=== PATIENT | male | born 1960 | race African-American/Black ===

== ENCOUNTER 2016-04-23 09:10 | Inpatient (IN) | payer OTHER ==
--- NOTE | 2016-04-23 09:25 | PDOC ---
History of Present Illness <Rick Monge - Last Filed: 04/23/16 12:34> - General History Source: Patient Exam Limitations: No Limitations - History of Present Illness Initial Comments: 04/23/16 09:34 The patient is a 55 year old male with history of hypertension, diabetes, CHF, atrial fibrillation, not compliant with medications because he believes his dosing is incorrect, who has not taken Lasix and methimazole in 3 weeks, who presents to the ED complaining of 3 weeks of chest tightness, palpations, shortness of breath, and bilateral lower extremity edema. He is noted to be tachycardic to approximately 180 on ED arrival. The patient states he was in seen at an outside ED in December 2015 for rapid atrial fibrillation. He was treated with Diltiazem and admitted to the hospital. He states believes his medication on his discharge were dosed incorrectly, and he has been taking "bits " of them. More recently, he has discontinued his Methimazole secondary to chills and his Lasix secondary to leg swelling. The patient denies any fever or chills. He denies nausea, vomiting, or diarrhea. Doctors are not affiliated with this hospital network. <Marta Hammonds - Last Filed: 04/23/16 12:38> - General Chief Complaint: Chest Pain Stated Complaint: CHEST PAIN, SOB Time Seen by Provider: 04/23/16 09:24 Past History - Psycho/Social/Smoking Cessation Hx Suicidal Ideation: No Smoking History: Current every day smoker Have you smoked in the past 12 months: No Number of Cigarettes Smoked Daily: 3 Information on smoking cessation initiated: No Hx Alcohol Use: No Drug/Substance Use Hx: No <Rick Monge - Last Filed: 04/23/16 12:34> <Marta Hammonds - Last Filed: 04/23/16 12:38> - Past Medical History Allergies/Adverse Reactions: Allergies Allergy/AdvReac Type Severity Reaction Status Date / Time honey Allergy Verified 04/23/16 09:19 Penicillins Allergy Verified 04/23/16 09:19 Home Medications: Ambulatory Orders Aspirin [ASA -] 81 mg PO DAILY 04/23/16 Digoxin [Digitek] 250 mcg PO DAILY 04/23/16 Hydrochlorothiazide [Hctz -] 12.5 mg PO DAILY 04/23/16 Metformin HCl 500 mg PO BID 04/23/16 Methimazole 10 mg PO DAILY 04/23/16 Review of Systems - Review of Systems Able to Perform ROS?: Yes Comments:: 04/23/16 10:08 GENERAL/CONSTITUTIONAL: No fever or chills. No weakness. HEAD, EYES, EARS, NOSE AND THROAT: No change in vision. No ear pain or discharge. No sore throat CARDIOVASCULAR: Shortness of breath, chest tightness, palpitations, b/l LE edema RESPIRATORY: No wheezing or hemoptysis. GASTROINTESTINAL: No nausea, vomiting, diarrhea or constipation. GENITOURINARY: No dysuria, frequency, or change in urination. MUSCULOSKELETAL: No joint or muscle swelling or pain. No neck or back pain. SKIN: No rash NEUROLOGIC: No headache, vertigo, loss of consciousness, or change in strength/ sensation. ENDOCRINE: No increased thirst. No abnormal weight change. HEMATOLOGIC/LYMPHATIC: No anemia, easy bleeding, or history of blood clots. ALLERGIC/IMMUNOLOGIC: No hives or skin allergy. <Marta Hammonds - Last Filed: 04/23/16 12:38> *Physical Exam - Vital Signs Last Vital Signs Temp Pulse Resp BP Pulse Ox 97.7 F 115 H 22 141/87 96 04/23/16 09:10 04/23/16 09:10 04/23/16 09:10 04/23/16 09:10 04/23/16 09:10 <Rick Monge - Last Filed: 04/23/16 12:34> - Vital Signs Last Vital Signs Temp Pulse Resp BP Pulse Ox 97.7 F 115 H 22 141/87 96 04/23/16 09:10 04/23/16 09:10 04/23/16 09:10 04/23/16 09:10 04/23/16 09:10 - Physical Exam Comments: 04/23/16 10:09 GENERAL: Awake, alert, and fully oriented. Very anxious appearing. HEAD: No signs of trauma EYES: PERRLA, EOMI, sclera anicteric, conjunctiva clear ENT: Auricles normal inspection, hearing grossly normal, nares patent, oropharynx clear without exudates. Moist mucosa NECK: +JVD. Normal ROM, supple, no lymphadenopathy, or masses. No palpable thyromegaly. LUNGS: Breath sounds equal, clear to auscultation bilaterally. No wheezes, and no crackles HEART: Tachycardic rate, irregularly irregular rhythm, +gallop. ABDOMEN: Soft, nontender, normoactive bowel sounds. No guarding, no rebound. No masses EXTREMITIES: Bilateral lower extremity edema. Normal range of motion. No clubbing or cyanosis. No cords, erythema, or tenderness NEUROLOGICAL: Cranial nerves II through XII grossly intact. Normal speech, normal gait SKIN: Warm, Dry, normal turgor, no rashes or lesions noted. <Marta Hammonds - Last Filed: 04/23/16 12:38> Heart Score/ECG Review #1 04/23/16 10:11 EKG obtained 9:25. Atrial flutter with variable AV block, vent rate [address] and T wave abnormality. Abnormal EKG. #2 04/23/16 10:37 EKG obtained 10:34. Atiral flutter with variable AV block, vent rate 110. Low voltage QRS. Cannot rule out anterior infarct, age undetermined. Prolonged QT. Abnormal ECG. <Marta Hammonds - Last Filed: 04/23/16 12:38> ED Treatment Course - LABORATORY CBC & Chemistry Diagram: 04/23/16 09:30 04/23/16 09:30 - RADIOLOGY Radiology Studies Ordered: Category Date Time Status CHEST X-RAY PORTABLE* [RAD] Stat Radiology 04/23/16 09:22 Ordered <Rick Monge - Last Filed: 04/23/16 12:34> - LABORATORY CBC & Chemistry Diagram: 04/23/16 09:30 04/23/16 09:30 - RADIOLOGY Radiograph Interpretation: 04/23/16 12:30 Chest x-ray, read and interpreted by Dr. Sutton, demonstrates cardiomegaly but no acute pathology. <Marta Hammonds - Last Filed: 04/23/16 12:38> Medical Decision Making - Critical Care Time Total Critical Care Time (minutes): 0 - Medical Decision Making 04/23/16 10:14 Patient reassessed after receiving medications, HR is irregularly irregular, but gallop has resolved. <Marta Hammonds - Last Filed: 04/23/16 12:38> *DC/Admit/Observation/Transfer - Discharge Dispostion Admit: Yes - Attestations Physician Attestion: 04/23/16 09:24 I, Dr. Rick Monge, attest that this document has been prepared under my direction and personally reviewed by me in its entirety. I further attest, that it accurately reflects all work, treatment, procedures and medical decision -making performed by me. <Rick Monge - Last Filed: 04/23/16 12:34> - Attestations Scribe Attestion: 04/23/16 10:13 Documentation prepared by Marta Hammonds, acting as medical billing service for Rick Monge DO. <Marta Hammonds - Last Filed: 04/23/16 12:38> Diagnosis at time of Disposition: Atrial fibrillation and flutter, Atrial fibrillation with RVR, Non-compliance - Referrals Referrals: Grace Meade [Primary Care Provider] -
[2016-04-23 09:39] LABS: BASOPHIL 0.9 % (0-2.0); EOSINOPHIL 1.3 % (0-4.5); MCH 28.9 pg (25.7-33.7); MCHC 32.7 g/dl (32.0-35.9); MEAN CELL VOLUME 88.5 fl (80-96); NEUTROPHILS 52.6 % (42.8-82.8); PLATELET COUNT 193 K/MM3 (134-434); RDW 15.9 % (11.9-15.9); WHITE BLOOD COUNT 7.1 K/mm3 (4.0-10.0)
[2016-04-23] MEDS ORDERED: LORAZEPAM CARPU-JECT 2 MG/ML DISP.SYRIN ONE (09:39)
[2016-04-23] MEDS ORDERED: dilTIAZem HCL 50 MG/10 ML - 10 ML VIAL ONE (09:40)
[2016-04-23] MEDS ORDERED: dilTIAZem HCL 50 MG/10 ML - 10 ML VIAL IVPUSH ONE (09:44)
[2016-04-23] MEDS ORDERED: LORAZEPAM CARPU-JECT 2 MG/ML DISP.SYRIN IVPUSH ONE (09:44)
[2016-04-23 09:52] LABS: INR 1.63 (0.82-1.09); PROTHROMBIN TIME (PATIENT) 18.1 SEC (9.98-11.88)
[2016-04-23] MEDS ORDERED: DILTIAZEM INJECTION 125 MG in DEXTROSE 5%-WATER - 100 ML IVPB ONE (09:58)
[2016-04-23] MEDS ORDERED: METOPROLOL TARTRATE 5 MG/5 ML VIAL IVPUSH ONE (09:58)
[2016-04-23 10:09] LABS: ALBUMIN 3.1 g/dl (3.4-5.0); ANION GAP 10 (8-16); BILIRUBIN,TOTAL 3.8 mg/dL (0.2-1.0); CALCIUM 8.1 mg/dL (8.5-10.1); CO2 23 mmol/L (21-32); GLUCOSE,RANDOM 113 mg/dL (74-106); SGOT/AST 35 U/L (15-37); SGPT/ALT 32 U/L (12-78); TOT PROT 6.5 g/dl (6.4-8.2)
[2016-04-23 10:12] LABS: ALK PHOS 145 U/L (45-117); TROPONIN I 0.05 ng/ml (0.00-0.05)
[2016-04-23 10:40] LABS: THYROID STIMULATING HORMONE < 0.01 uIU/ml (0.358-3.74)
[2016-04-23 12:43] LABS: DIGOXIN LEVEL 0.1476 ng/ml (0.8-2.0)
--- NOTE | 2016-04-23 12:50 | HP ---
Admitting History and Physical - Admission History of Present Illness: 55 year old man with uncertain medical history definitely has afib (chart says HTN DM CHF Afib) pt states he knows of no medical problems who presents to the ED complaining of chest tightness for the past 3 weeks. Pt states that he was sent to [facility] from cardiology office for fast heart beat. Pt states that he was told that he might have hyperthyroidism and in addition was to be transferred to [facility] for cardiac cath which he declined. He states that after he left the hospital he was prescribed medications for "my heart" and for diabetes but states that he was never told that he had either. He has just seen his PCP 3 weeks prior to that admission and states that his PCP did not notify him that he had any medical problems. He presented to the ED today very anxious and received ativan. His heart rate was in the 180's and on EKG appears to be SVT and was treated with metoprolol 5 IV and cardizem 20 IV and then started on cardizem drip. - Smoking History Smoking history: Current every day smoker Have you smoked in the past 12 months: No Aproximately how many cigarettes per day: 3 - Alcohol/Substance Use Hx Alcohol Use: No Home Medications - Allergies Allergies/Adverse Reactions: Allergies Allergy/AdvReac Type Severity Reaction Status Date / Time honey Allergy Verified 04/23/16 09:19 Penicillins Allergy Verified 04/23/16 09:19 - Home Medications Home Medications: Ambulatory Orders Aspirin [ASA -] 81 mg PO DAILY 04/23/16 Digoxin [Digitek] 250 mcg PO DAILY 04/23/16 Hydrochlorothiazide [Hctz -] 12.5 mg PO DAILY 04/23/16 Metformin HCl 500 mg PO BID 04/23/16 Methimazole 10 mg PO DAILY 04/23/16 Family Disease History - Family Disease History Family History: Unremarkable Review of Systems - Review of Systems Constitutional: denies: No Symptoms, Chills, Diaphoresis, Fever, Lethargy, Loss of Appetite, Malaise, Night Sweats, Unintentional Wgt. Loss, Weakness, Other Eyes: denies: No Symptoms, Blind Spots, Blurred Vision, Double Vision, Eye Pain , Floaters, Photophobia, Recent Change in Vision, Other HENT: denies: No Symptoms, Difficult Swallowing, Ear Discharge, Ear Pain, Epistaxis, Gingival Bleeding, Hearing Loss, Mouth Swelling, Nasal Congestion, Ocular Prosthesis, Throat Pain, Toothache, Ringing in Ears, Other Neck: denies: No Symptoms, Decreased ROM, Lumps, Pain on Movement, Stiffness, Swollen Glands, Tenderness, Other Cardiovascular: reports: Chest Pain, Edema, Shortness of Breath Respiratory: reports: Orthopnea Gastrointestinal: denies: No Symptoms, Abdominal Pain, Bloating, Constipation, Diarrhea, Dysphagia, Indigestion, Melena, Nausea, Rectal Bleeding, Vomiting, Vomiting Blood, Other Genitourinary: denies: No Symptoms, Burning, Discharge, Dysuria, Flank Pain, Frequency, Hematuria, Incontinence, Lesions, Menses, Pain, Testicular Mass, Testicular Pain, Testicular Swelling, Urgency, Vaginal Bleeding, Other Breasts: denies: No Symptoms Reported, See HPI, Breast Implants, Discharge from Nipple, Lumps, Pain, Skin Changes, Other Musculoskeletal: denies: No Symptoms, Back Pain, Crepitus, Decreased ROM, Extremity Pain, Joint Pain, Joint Swelling, Muscle Pain, Muscle Cramps, Muscle Weakness, Other Integumentary: denies: No Symptoms, Blister, Bruising, Change in Color, Eczema, Erythema, Incision, Lesions, Lump, Pallor, Pruritis, Rash, Wound, Other Neurological: denies: No Symptoms, Change in LOC, Change in Speech, Confusion, Dizziness, Headache, Incoordination, Numbness, Parasthesia, Pre-Existing Deficit , Seizure, Syncope, Tremors, Unsteady Gait, Weakness, Other Endocrine: reports: Excessive Sweating Hematology/Lymphatic: denies: No Symptoms, Easily Bruised, Excessive Bleeding, Swollen Glands, Other Psychiatric: denies: No Symptoms, Altered Sleep Pattern, Anxiety, Depression, Hallucinations, Panic, Paranoia, Suicidal, Other Physical Examination Vital Signs: Vital Signs Temperature 97.7 F 04/23/16 09:10 Pulse Rate 130 H 04/23/16 12:05 Respiratory Rate 20 04/23/16 12:05 Blood Pressure 128/74 04/23/16 12:05 O2 Sat by Pulse Oximetry (%) 100 04/23/16 12:05 Constitutional: Yes: Well Nourished, No Distress, Calm Eyes: Yes: WNL, Conjunctiva Clear, EOM Intact HENT: Yes: WNL, Atraumatic, Normocephalic Neck: Yes: WNL, Supple, Trachea Midline Cardiovascular: Yes: Tachycardia. No: Regular Rate and Rhythm Respiratory: Yes: WNL, Regular, CTA Bilaterally Gastrointestinal: Yes: WNL, Normal Bowel Sounds Musculoskeletal: Yes: WNL Extremities: Yes: WNL Edema: Yes Edema: LLE: 3+, RLE: 3+ Integumentary: Yes: WNL Neurological: Yes: WNL, Alert, Oriented ...Motor Strength: WNL Psychiatric: Yes: WNL Labs: CBC, BMP 04/23/16 09:30 04/23/16 09:30 Assessment/Plan 55 year old man with uncertain medical history definitely has afib (chart says HTN DM CHF Afib) pt states he knows of no medical problems admitted for SVT SVT -heart rate was in the 180's and on EKG appears to be SVT and was treated with metoprolol 5 IV and cardizem 20 IV and then started on cardizem drip -heart rate now in the 130's -will cont cardizem drip at this time and await input from cardiology attending -will hold off on anticoagulation other than ASA at this time as since there is ambiguity as to full medical history so accurate CHADS score is unattainable at this time CHF -pt has orthopnea and 3 plus pitting edema so has CHF based on clinical diagnosis -retrieve echo done 3 weeks ago from [facility] -pt had brief hypotensive episode when cardizem drip was first started so will trend BP and start diuresis and JACK-I if BP remains stable DM -unknown if pt is truly diabetic -follow up HB A1C Visit type - Emergency Visit Emergency Visit: Yes Care time: The patient presented to the Emergency Department on the above date and was hospitalized for further evaluation of their emergent condition. - New Patient This patient is new to me today: Yes Date on this admission: 04/23/16 - Critical Care Critical Care patient: No
[2016-04-23 15:01] VITALS: BMI 34.0
[2016-04-23] MEDS ORDERED: FUROSEMIDE 40 MG/4 ML INJECTABLE VIAL IVPUSH STA (15:45)
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
[2016-04-23] MEDS ORDERED: METOPROLOL TARTRATE 25 MG TABLET (FP) ONE (16:45)
[2016-04-23] MEDS: RIVAROXABAN 20 MG TABLET PO SCH (16:46)
[2016-04-23] MEDS: NICOTINE 14 MG/24 HOURS TOPICAL PATCH TD SCH (16:47)
[2016-04-23] MEDS: METOPROLOL TARTRATE 25 MG TABLET (FP) PO SCH ×3 (16:47→21:28)
[2016-04-23] MEDS ORDERED: dilTIAZem HCL 30 MG TABLET (FP) PO SCH (18:00)
--- NOTE | 2016-04-23 18:11 | EKG ---
Test Reason : Blood Pressure : / mmHG Vent. Rate : 110 BPM Atrial Rate : 277 BPM P-R Int : 000 ms QRS Dur : 072 ms QT Int : 458 ms P-R-T Axes : 000 036 057 degrees QTc Int : 619 ms ATRIAL FLUTTER WITH VARIABLE A-V BLOCK LOW VOLTAGE QRS CANNOT RULE OUT ANTERIOR INFARCT , AGE UNDETERMINED PROLONGED QT ABNORMAL ECG WHEN COMPARED WITH ECG OF 23-APR-2016 09:25, ST NO LONGER DEPRESSED IN INFERIOR LEADS NON-SPECIFIC CHANGE IN ST SEGMENT IN LATERAL LEADS NONSPECIFIC T WAVE ABNORMALITY NOW EVIDENT IN ANTERIOR LEADS Confirmed by ANDI BLANCAS MD ([id number]) on 04/23/2016 6:11:10 PM Referred By: Confirmed By:ANDI BLANCAS MD
--- NOTE | 2016-04-23 18:12 | EKG ---
Test Reason : Blood Pressure : / mmHG Vent. Rate : 158 BPM Atrial Rate : 293 BPM P-R Int : 000 ms QRS Dur : 070 ms QT Int : 256 ms P-R-T Axes : 264 004 002 degrees QTc Int : 415 ms ATRIAL FLUTTER WITH VARIABLE A-V BLOCK NONSPECIFIC ST AND T WAVE ABNORMALITY ABNORMAL ECG NO PREVIOUS ECGS AVAILABLE Confirmed by ANDI BLANCAS MD ([id number]) on 04/23/2016 6:12:10 PM Referred By: Confirmed By:ANDI BLANCAS MD
[2016-04-23] MEDS: METOCLOPRAMIDE HCL INJECTION 10 MG/2 ML VIAL IVPB PRN (23:55)
[2016-04-24] MEDS: FUROSEMIDE 40 MG/4 ML INJECTABLE VIAL IVPUSH SCH ×2 (06:28→14:19)
[2016-04-24 07:44] LABS: ALBUMIN 3.1 g/dl (3.4-5.0); CALCIUM 8.3 mg/dL (8.5-10.1); MAGNESIUM 1.9 mg/dL (1.8-2.4); PHOSPHOROUS 5.5 mg/dL (2.5-4.9)
[2016-04-24 07:46] LABS: BILIRUBIN,TOTAL 3.2 mg/dL (0.2-1.0); CREATININE 1.3 mg/dL (0.7-1.3)
[2016-04-24] MEDS: METOPROLOL TARTRATE 25 MG TABLET (FP) PO SCH (09:34)
[2016-04-24] MEDS: ASPIRIN 81 MG CHEWABLE TABLETS PO SCH (09:34)
[2016-04-24] MEDS: NICOTINE 14 MG/24 HOURS TOPICAL PATCH TD SCH (09:35)
[2016-04-24] MEDS: RIVAROXABAN 20 MG TABLET PO SCH (09:35)
[2016-04-24] MEDS: METHIMAZOLE 10 MG TABLET (FP) PO SCH (09:35)
[2016-04-24 09:41] LABS: BASOPHIL 1.1 % (0-2.0); EOSINOPHIL 0.2 % (0-4.5); MCH 28.7 pg (25.7-33.7); MCHC 32.4 g/dl (32.0-35.9); MEAN CELL VOLUME 88.7 fl (80-96); MEAN PLT VOLUME 9.8 fl (7.5-11.1); NEUTROPHILS 60.3 % (42.8-82.8); PLATELET COUNT 189 K/MM3 (134-434); RDW 15.8 % (11.9-15.9); WHITE BLOOD COUNT 9.8 K/mm3 (4.0-10.0)
[2016-04-24] MEDS: INSULIN SLIDING SCALE (NOVOLOG) 1 VIAL SQ SCH ×3 (11:52→21:04)
--- NOTE | 2016-04-24 11:52 | EKG ---
Test Reason : Blood Pressure : / mmHG Vent. Rate : 132 BPM Atrial Rate : 264 BPM P-R Int : 000 ms QRS Dur : 086 ms QT Int : 280 ms P-R-T Axes : 078 025 -78 degrees QTc Int : 414 ms ATRIAL FLUTTER WITH VARIABLE A-V BLOCK WITH PREMATURE VENTRICULAR OR ABERRANTLY CONDUCTED COMPLEXES NONSPECIFIC T WAVE ABNORMALITY ABNORMAL ECG WHEN COMPARED WITH ECG OF 23-APR-2016 10:34, NONSPECIFIC T WAVE ABNORMALITY NO LONGER EVIDENT IN ANTERIOR LEADS Confirmed by MIN MIRANDA MD ([id number]) on 04/24/2016 11:52:26 AM Referred By: Mathieu FUENTES Confirmed By:MIN MIRANDA MD
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
--- NOTE | 2016-04-24 14:37 | PN ---
Physical Exam: SUBJECTIVE: Patient seen and examined at bedside. Denies chest pain. Occasionally feels palpitations. SOB with minimal exertion, orthopnea. Gained 20 pounds over past month, has b/l LE edema. OBJECTIVE: Vital Signs Period Temp Pulse Resp BP Sys/Schuster Pulse Ox Last 24 Hr 97.2 F-98.5 F 88-137 18-20 96-134/55-77 98-99 GENERAL: The patient is awake, alert, and fully oriented, mildy dyspneic with speaking. HEAD: Normal with no signs of trauma. EYES: PERRL, extraocular movements intact, sclera anicteric, conjunctiva clear. No ptosis. LUNGS: Breath sounds equal, clear to auscultation bilaterally, no wheezes, no crackles, no accessory muscle use. HEART: Irregular, rapid, S1, S2 without murmur, rub or gallop. ABDOMEN: Soft, nontender, nondistended, normoactive bowel sounds, no guarding, no rebound EXTREMITIES: 4+ tense edema NEUROLOGICAL: Cranial nerves II through XII grossly intact. Normal speech, steady gait Laboratory Results - last 24 hr 04/23/16 04/23/16 04/24/16 13:00 16:53 05:35 WBC RBC Hgb Hct MCV MCHC RDW Plt Count MPV Neutrophils % Lymphocytes % Monocytes % Eosinophils % Basophils % Sodium 139 Potassium 4.8 Chloride 105 Carbon Dioxide 22 Anion Gap 12 BUN 20 H D Creatinine 1.3 D Creat Clearance w eGFR 57.10 POC Glucometer 127 Random Glucose 118 H Calcium 8.3 L Phosphorus 5.5 H Magnesium 2.0 1.9 Total Bilirubin 3.2 H AST 49 H D ALT 39 D Alkaline Phosphatase 136 H Total Protein 6.0 L Albumin 3.1 L 04/24/16 04/24/16 06:00 11:46 WBC 9.8 D RBC 4.52 Hgb 13.0 Hct 40.1 MCV 88.7 MCHC 32.4 RDW 15.8 Plt Count 189 MPV 9.8 Neutrophils % 60.3 Lymphocytes % 28.2 Monocytes % 10.2 Eosinophils % 0.2 D Basophils % 1.1 Sodium Potassium Chloride Carbon Dioxide Anion Gap BUN Creatinine Creat Clearance w eGFR POC Glucometer 107 Random Glucose Calcium Phosphorus Magnesium Total Bilirubin AST ALT Alkaline Phosphatase Total Protein Albumin Active Medications Generic Name Dose Route Start Last Admin Trade Name Freq PRN Reason Stop Dose Admin Aspirin 81 mg 04/24/16 10:00 04/24/16 09:34 Asa - PO 81 mg DAILY RAFA Administration Furosemide 40 mg 04/24/16 06:00 04/24/16 14:19 Lasix Injection - IVPUSH 40 mg BID@0600,1400 RAFA Administration Insulin Aspart 1 vial 04/24/16 11:00 04/24/16 11:52 Novolog Vial Sliding Scale - SQ Not Given ACHS RAFA Protocol Methimazole 10 mg 04/24/16 10:00 04/24/16 09:35 Tapazole - PO 10 mg DAILY RAFA Administration Metoclopramide HCl 10 mg 04/23/16 23:29 04/23/16 23:55 Reglan Injection - IVPB 10 mg Q6H PRN Administration NAUSEA AND/OR VOMITING Metoprolol Tartrate 25 mg 04/23/16 22:00 04/24/16 09:34 Lopressor - PO 25 mg BID RAFA Administration Nicotine 14 mg 04/23/16 16:45 04/24/16 09:35 Nicoderm Patch - TD 14 mg DAILY RAFA Administration Rivaroxaban 20 mg 04/23/16 16:45 04/24/16 09:35 Xarelto - PO 20 mg DAILY RAFA Administration ASSESSMENT/PLAN: 55 year-old man with a recent PMH of HTN, heart failure, and NIDDM. Admitted with severe systolic heart failure. NOTE: With respect to "home medications" these were medications prescribed for patient during his [facility] stay in December 2015. He did NOT take these medications on a regular basis, if at all. Acute systolic heart failure Afib with RVR --04/24 Echo: LV severely reduced, severe global hypokinesis; RV normal; severe BLAE; moderate to severe MR; severe TR; mild to moderate AI; moderate PI --severe b/l LE edema, SOB on minimal exertion, HR 140s, brief run of SVT --first troponin neg, second pending --switch PO metoprolol to IV lopressor 5mg q6h --continue Lasix IV 40mg BID --Xarelto for anticoagulation --stress MIBI when more stable Hyperthyroidism --TSH low, free T4 high --methimazole daily --metoprolol for tachycardia NIDDM --HgbA1C 6.6 --Novolog sliding scale coverage F/E/N Fluids: PO intake adequate Electrolytes: replete as indicated Nutrition: low sodium diet DVT prophylaxis: on Xarelto Dispo: continues to require inpatient care. Full code. Visit type - Emergency Visit Emergency Visit: Yes ED Registration Date: 04/23/16 Care time: The patient presented to the Emergency Department on the above date and was hospitalized for further evaluation of their emergent condition. - New Patient This patient is new to me today: Yes Date on this admission: 04/24/16 - Critical Care Critical Care patient: No
[2016-04-24] MEDS ORDERED: DILTIAZEM INJECTION 125 MG in DEXTROSE 5%-WATER - 100 ML IVPB SCH (15:45)
[2016-04-24] MEDS ORDERED: METOPROLOL TARTRATE 5 MG/5 ML VIAL IVPUSH ONE (15:45)
[2016-04-24] MEDS: METOPROLOL TARTRATE 5 MG/5 ML VIAL IVPUSH SCH ×2 (21:05→23:46)
[2016-04-25] MEDS ORDERED: METOPROLOL TARTRATE 5 MG/5 ML VIAL IVPUSH ONE (01:30)
--- NOTE | 2016-04-25 01:50 | HOSP ---
Subjective - Review of Symptoms Subjective: Pt c/o episode chest pain about 30 minutes ago, lasting 20 minutes. Pt states he is feeling fine now. No further complaints. Denies palpitations. Nurse reports heart rate 130s-140s. Physical Examination Vital Signs: Vital Signs Temperature 97.7 F 04/24/16 22:00 Pulse Rate 140 H 04/25/16 01:25 Respiratory Rate 20 04/24/16 22:00 Blood Pressure 114/75 04/25/16 01:25 O2 Sat by Pulse Oximetry (%) 98 04/24/16 21:00 Constitutional: Yes: No Distress Cardiovascular: Yes: Tachycardia, S1, S2. No: Murmur Respiratory: Yes: WNL Gastrointestinal: Yes: WNL Edema: LLE: 3+, RLE: 3+ Labs: CBC, BMP 04/24/16 06:00 04/24/16 05:35 ECG: Atrial flutter with 2:1 conduction, no sig change from prior ECG 04/24. No acute ST/T wave changes. Hospitalist Encounter Assessment: Atrial flutter with RVR, 2:1 - metoprolol 5mg given IVP @11p and again at 130a without response - pt refusing any additional medications at this time, stating "it would kill me" - pt urged to take additional medications, risks discussed at length Chest pain - ECG without acute ST changes - cardiac profile now
[2016-04-25 02:55] LABS: TROPONIN I 0.05 ng/ml (0.00-0.05)
[2016-04-25] MEDS: FUROSEMIDE 40 MG/4 ML INJECTABLE VIAL IVPUSH SCH ×2 (06:34→14:16)
[2016-04-25] MEDS: METOPROLOL TARTRATE 5 MG/5 ML VIAL IVPUSH SCH ×3 (06:34→17:36)
[2016-04-25] MEDS: INSULIN SLIDING SCALE (NOVOLOG) 1 VIAL SQ SCH ×2 (06:49→11:30)
[2016-04-25 08:44] LABS: BASOPHIL 0.6 % (0-2.0); EOSINOPHIL 0.8 % (0-4.5); MCH 28.7 pg (25.7-33.7); MCHC 32.5 g/dl (32.0-35.9); MEAN CELL VOLUME 88.3 fl (80-96); MEAN PLT VOLUME 8.7 fl (7.5-11.1); NEUTROPHILS 58.6 % (42.8-82.8); PLATELET COUNT 193 K/MM3 (134-434); RDW 15.4 % (11.9-15.9); WHITE BLOOD COUNT 6.7 K/mm3 (4.0-10.0)
[2016-04-25 09:23] LABS: ALBUMIN 3.2 g/dl (3.4-5.0); CALCIUM 8.8 mg/dL (8.5-10.1); GLUCOSE,RANDOM 136 mg/dL (74-106); MAGNESIUM 1.7 mg/dL (1.8-2.4)
[2016-04-25 09:31] LABS: ALK PHOS 141 U/L (45-117); ANION GAP 11 (8-16); BILIRUBIN,TOTAL 2.9 mg/dL (0.2-1.0); CO2 27 mmol/L (21-32); SGOT/AST 56 U/L (15-37); SGPT/ALT 48 U/L (12-78); TOT PROT 6.5 g/dl (6.4-8.2); TROPONIN I 0.05 ng/ml (0.00-0.05)
[2016-04-25] MEDS: NICOTINE 14 MG/24 HOURS TOPICAL PATCH TD SCH (09:32)
[2016-04-25] MEDS: METHIMAZOLE 10 MG TABLET (FP) PO SCH (09:32)
[2016-04-25] MEDS: RIVAROXABAN 20 MG TABLET PO SCH (09:32)
[2016-04-25] MEDS: ASPIRIN 81 MG CHEWABLE TABLETS PO SCH (09:32)
--- NOTE | 2016-04-25 10:46 | PN ---
Progress Note, Physician Chief Complaint: Pt sitting up at bedside; no chest pain or dyspnea; denies palpitations; c/o legs still being swollen. History of Present Illness: The patient is a 55 year old black male with history of hypertension, diabetes, CHF, atrial fibrillation, not compliant with medications because he believes his dosing is incorrect, who has not taken Lasix and methimazole in 3 weeks, who presents to the ED complaining of 3 weeks of chest tightness, palpitations, shortness of breath, and bilateral lower extremity edema. He is noted to be tachycardic to approximately 180 on ED arrival. The patient states he was in seen at an outside ED in December 2015 (?[facility] [place]) for rapid atrial fibrillation. "John put the pads on me and shocked me twice"; he was then treated with Diltiazem and admitted to the hospital. He states believes his medication on his discharge were dosed incorrectly, and he has been taking "bits " of them. More recently, he has discontinued his Methimazole secondary to chills and his Lasix secondary to leg swelling. The patient denies any fever or chills. He denies nausea, vomiting, or diarrhea. Pt says that, for months, he gets easily short of breath and has central chest tightness if he walks more than a block quickly; the discomfort takes a few minutes to resolve after he stops walking. Doctors are not affiliated with this hospital network. - Current Medication List Current Medications: Active Medications Aspirin (Asa -) 81 mg PO DAILY [facility] Last Admin: 04/25/16 09:32 Dose: 81 mg Furosemide (Lasix Injection -) 40 mg IVPUSH BID@0600,1400 [facility] Last Admin: 04/25/16 06:34 Dose: 40 mg Insulin Aspart (Novolog Vial Sliding Scale -) 1 vial SQ ACHS [facility] PRN Reason: Protocol Last Admin: 04/25/16 06:49 Dose: Not Given Methimazole (Tapazole -) 10 mg PO DAILY [facility] Last Admin: 04/25/16 09:32 Dose: 10 mg Metoclopramide HCl (Reglan Injection -) 10 mg IVPB Q6H PRN PRN Reason: NAUSEA AND/OR VOMITING Last Admin: 04/23/16 23:55 Dose: 10 mg Metoprolol Tartrate (Lopressor Injection -) 5 mg IVPUSH Q6H [facility] Last Admin: 04/25/16 06:34 Dose: 5 mg Nicotine (Nicoderm Patch -) 14 mg TD DAILY [facility] Last Admin: 04/25/16 09:32 Dose: 14 mg Rivaroxaban (Xarelto -) 20 mg PO DAILY [facility] Last Admin: 04/25/16 09:32 Dose: 20 mg - Objective Vital Signs: Vital Signs Temperature 97.7 F 04/25/16 03:18 Pulse Rate 140 H 04/25/16 07:00 Respiratory Rate 22 04/25/16 07:00 Blood Pressure 110/78 04/25/16 07:00 O2 Sat by Pulse Oximetry (%) 98 04/24/16 21:00 Constitutional: Yes: Calm Eyes: Yes: WNL HENT: Yes: WNL Neck: Yes: WNL Cardiovascular: Yes: Tachycardia, Pulse Irregular, S1 (varies in intensity) Respiratory: Yes: Regular Gastrointestinal: Yes: Soft, Abdomen, Obese ...Rectal Exam: Yes: Deferred Genitourinary: No: Anuria Breast(s): Yes: WNL Extremities: Yes: Cool Edema: Yes Edema: LLE: 2+, RLE: 2+ Peripheral Pulses WNL: Yes Integumentary: Yes: WNL Neurological: Yes: Alert, Oriented Psychiatric: Yes: Alert, Oriented Labs: CBC, BMP 04/25/16 08:15 04/25/16 08:15 INR, PTT INR 1.63 (0.82-1.09) H 04/23/16 09:30 Abnormal Lab Results 04/23/16 04/25/16 04/25/16 09:42 08:15 08:15 Monocytes % 11.2 H BUN 20 H Random Glucose 136 H Magnesium 1.7 L Total Bilirubin 2.9 H AST 56 H Alkaline Phosphatase 141 H Albumin 3.2 L HDL Cholesterol 24 L Free T3 5.4 H Problem List - Problems (1) Atrial fibrillation and flutter Assessment/Plan: ECHO: severely reduced LVEF; mild LV Enlargement; severe pulmonary HTN; moderate AR. AF exacerbated by dilated cardiomyopathy, hyperthyroidism. Started PO metoprolol ER (AF; hyperthyroid); will increase to 100 mg daily. On rivaroxaban for anticoagulation; discontinue ASA. 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 Code(s): I48.91 - UNSPECIFIED ATRIAL FIBRILLATION I48.92 - UNSPECIFIED ATRIAL FLUTTER (2) Diabetes Assessment/Plan: HGBA1c 6.6. Family hx DM. The importance of diet change (nutrition consult would be of benefit), exercise , and portion control was discussed. ?Need for medication. Code(s): E11.9 - TYPE 2 DIABETES MELLITUS WITHOUT COMPLICATIONS (3) HTN (hypertension) Assessment/Plan: on metoprolol, lisinopril, furosemide. Code(s): I10 - ESSENTIAL (PRIMARY) HYPERTENSION (4) Hyperthyroidism Assessment/Plan: restarted methimazole. Started beta blockers (AF; hyperthyroid; HTN). Pt has no hx of asthma. F/u with PMD, ?cuff presser. Code(s): E05.90 - THYROTOXICOSIS, UNSP WITHOUT THYROTOXIC CRISIS OR STORM (5) Non-compliance Code(s): Z91.19 - PATIENT'S NONCOMPLIANCE W OTH MEDICAL TREATMENT AND REGIMEN (6) [place] cardiac risk >20% in next 10 years Assessment/Plan: Lipid panel. Diabetic therapy. thyroid control. F/u records; Coronary artery evaluation (stress MIBI or coronary angiogram because of severely reduced LV now noted on ECHO) when stable, if not done by his own group of doctors.Pt says he never had a heart problem, and does not remember having any of these tests. Code(s): Z91.89 - OTH PERSONAL RISK FACTORS, NOT ELSEWHERE CLASSIFIED (7) Acute on chronic systolic (congestive) heart failure Assessment/Plan: Severely reduced LVEF. Start metoprolol ER (Systolic CHF; AF with RVR); increased to 100 mg daily Started lisinopril 2.5 mg daily, and increase as tolerated Plan for starting spironolactone once lisinopril is optimized, and if BUN/Cr and electrolytes allow. On furosemide. F/u daily weights, Is and Os. Replete magnesium (pt's IV site hurts him; will give Mg Oxide PO). Code(s): I50.23 - ACUTE ON CHRONIC SYSTOLIC (CONGESTIVE) HEART FAILURE
[2016-04-25] MEDS ORDERED: METOPROLOL SUCCINATE 50 MG TAB.SR.24H (FP) PO SCH (11:15)
[2016-04-25] MEDS ORDERED: LISINOPRIL 5 MG TABLET (FP) PO ONE (11:15)
--- NOTE | 2016-04-25 13:06 | EKG ---
Test Reason : Blood Pressure : / mmHG Vent. Rate : 138 BPM Atrial Rate : 276 BPM P-R Int : 000 ms QRS Dur : 072 ms QT Int : 334 ms P-R-T Axes : 020 122 -11 degrees QTc Int : 506 ms ATRIAL FLUTTER WITH 2:1 A-V CONDUCTION POOR R WAVE PROGRESSION ABNORMAL ECG WHEN COMPARED WITH ECG OF 24-APR-2016 08:55, PREMATURE VENTRICULAR COMPLEXES ARE NO LONGER SEEN Confirmed by RAJWINDER COOPER, NABIL ([id number]) on 04/25/2016 1:06:33 PM Referred By: Confirmed By:NABIL PURDY MD
[2016-04-25] MEDS ORDERED: MAGNESIUM OXIDE 400 MG TABLET (FP) PO ONE (13:45)
[2016-04-25 15:10] LABS: CHOLESTEROL 91 mg/dL (50-200); LDL CHOLESTEROL (ONLY SJRH) 70 mg/dL (5-100)
--- NOTE | 2016-04-25 16:25 | PN ---
Physical Exam: SUBJECTIVE: Patient seen and examined at bedside. Still SOB with minimal exertion. Leg swelling has not improved. OBJECTIVE: Vital Signs Period Temp Pulse Resp BP Sys/Schuster Pulse Ox Last 24 Hr 97.5 F-98.3 F 94-143 20-22 110-124/70-95 98 GENERAL: The patient is awake, alert, and fully oriented. HEAD: Normal with no signs of trauma. EYES: PERRL, extraocular movements intact, sclera anicteric, conjunctiva clear. No ptosis. LUNGS: Breath sounds equal, clear to auscultation bilaterally, no wheezes, no crackles, no accessory muscle use. HEART: Irregular, rapid, S1, S2 without murmur, rub or gallop. ABDOMEN: Soft, nontender, nondistended, normoactive bowel sounds, no guarding, no rebound EXTREMITIES: 4+ tense edema NEUROLOGICAL: Cranial nerves II through XII grossly intact. Normal speech, steady gait Laboratory Results - last 24 hr 04/24/16 04/24/16 04/24/16 06:00 16:36 20:58 WBC RBC Hgb Hct MCV MCHC RDW Plt Count MPV Neutrophils % Lymphocytes % Monocytes % Eosinophils % Basophils % Sodium Potassium Chloride Carbon Dioxide Anion Gap BUN Creatinine Creat Clearance w eGFR POC Glucometer 149 173 Random Glucose Calcium Magnesium Total Bilirubin AST ALT Alkaline Phosphatase Creatine Kinase Troponin I 0.04 Total Protein Albumin Triglycerides Cholesterol Total LDL Cholesterol HDL Cholesterol 04/25/16 04/25/16 04/25/16 02:00 06:32 08:15 WBC RBC Hgb Hct MCV MCHC RDW Plt Count MPV Neutrophils % Lymphocytes % Monocytes % Eosinophils % Basophils % Sodium 140 Potassium 3.9 Chloride 102 Carbon Dioxide 27 D Anion Gap 11 BUN 20 H Creatinine 1.0 D Creat Clearance w eGFR > 60 POC Glucometer 110 Random Glucose 136 H Calcium 8.8 Magnesium 1.7 L Total Bilirubin 2.9 H AST 56 H ALT 48 D Alkaline Phosphatase 141 H Creatine Kinase 145 138 Troponin I 0.05 0.05 Total Protein 6.5 Albumin 3.2 L Triglycerides 46 Cholesterol 91 Total LDL Cholesterol 70 HDL Cholesterol 24 L 04/25/16 04/25/16 04/25/16 08:15 08:15 11:29 WBC 6.7 D RBC 4.51 Hgb 12.9 Hct 39.8 MCV 88.3 MCHC 32.5 RDW 15.4 Plt Count 193 MPV 8.7 D Neutrophils % 58.6 Lymphocytes % 28.8 Monocytes % 11.2 H Eosinophils % 0.8 D Basophils % 0.6 Sodium Potassium Chloride Carbon Dioxide Anion Gap BUN Creatinine Creat Clearance w eGFR POC Glucometer 159 Random Glucose Calcium Magnesium Total Bilirubin AST ALT Alkaline Phosphatase Creatine Kinase Troponin I Total Protein Albumin Triglycerides Cancelled Cholesterol Cancelled Total LDL Cholesterol Cancelled HDL Cholesterol Cancelled Active Medications Generic Name Dose Route Start Last Admin Trade Name Audieq PRN Reason Stop Dose Admin Furosemide 40 mg 04/24/16 06:00 04/25/16 14:16 Lasix Injection - IVPUSH 40 mg BID@0600,1400 RAFA Administration Lisinopril 2.5 mg 04/26/16 10:00 Prinivil PO DAILY RAFA Methimazole 10 mg 04/24/16 10:00 04/25/16 09:32 Tapazole - PO 10 mg DAILY RAFA Administration Metoclopramide HCl 10 mg 04/23/16 23:29 04/23/16 23:55 Reglan Injection - IVPB 10 mg Q6H PRN Administration NAUSEA AND/OR VOMITING Metoprolol Succinate 50 mg 04/25/16 11:15 04/25/16 11:30 Toprol Xl - PO 50 mg DAILY RAFA Administration Metoprolol Tartrate 5 mg 04/24/16 18:30 04/25/16 12:49 Lopressor Injection - IVPUSH 5 mg Q6H RAFA Administration Nicotine 14 mg 04/23/16 16:45 04/25/16 09:32 Nicoderm Patch - TD 14 mg DAILY RAFA Administration Rivaroxaban 20 mg 04/23/16 16:45 04/25/16 09:32 Xarelto - PO 20 mg DAILY RAFA Administration ASSESSMENT/PLAN: 55 year-old man with a recent PMH of HTN, heart failure, and NIDDM. Admitted with severe systolic heart failure. Acute systolic heart failure Afib with RVR --04/24 Echo: LV severely reduced, severe global hypokinesis; RV normal; severe BLAE; moderate to severe MR; severe TR; mild to moderate AI; moderate PI --continues to be symptomatic: severe b/l LE edema, SOB on minimal exertion, HR 140s --troponin neg x 3 --start Toprol XL 50mg daily, start lisinopril 2.5mg daily --continue Lasix IV 40mg BID; daily weights, strict I&Os --Xarelto for anticoagulation, ASA d/c'd --stress MIBI when more stable Hyperthyroidism --TSH low, free T4 high --methimazole daily --metoprolol for tachycardia NIDDM --HgbA1C 6.6 --Novolog sliding scale coverage F/E/N Fluids: PO intake adequate Electrolytes: replete as indicated Nutrition: low sodium diet DVT prophylaxis: on Xarelto Dispo: continues to require inpatient care. Full code. Visit type - Emergency Visit Emergency Visit: Yes ED Registration Date: 04/23/16 Care time: The patient presented to the Emergency Department on the above date and was hospitalized for further evaluation of their emergent condition. - New Patient This patient is new to me today: No - Critical Care Critical Care patient: No
[2016-04-25] MEDS ORDERED: METOPROLOL SUCCINATE 50 MG TAB.SR.24H (FP) PO ONE (21:23)
[2016-04-26] MEDS: FUROSEMIDE 40 MG/4 ML INJECTABLE VIAL IVPUSH SCH ×2 (05:47→13:56)
[2016-04-26] MEDS: METOPROLOL TARTRATE 5 MG/5 ML VIAL IVPUSH PRN ×2 (05:54→17:52)
[2016-04-26 07:04] LABS: BASOPHIL 0.5 % (0-2.0); EOSINOPHIL 2.3 % (0-4.5); MCH 28.9 pg (25.7-33.7); MCHC 32.8 g/dl (32.0-35.9); MEAN CELL VOLUME 87.9 fl (80-96); MEAN PLT VOLUME 9.2 fl (7.5-11.1); NEUTROPHILS 55.5 % (42.8-82.8); PLATELET COUNT 178 K/MM3 (134-434); RDW 16.1 % (11.9-15.9); WHITE BLOOD COUNT 7.6 K/mm3 (4.0-10.0)
[2016-04-26 07:27] LABS: CALCIUM 8.2 mg/dL (8.5-10.1); CREATININE 0.8 mg/dL (0.7-1.3); MAGNESIUM 1.8 mg/dL (1.8-2.4)
[2016-04-26] MEDS: METHIMAZOLE 10 MG TABLET (FP) PO SCH (09:33)
[2016-04-26] MEDS: NICOTINE 14 MG/24 HOURS TOPICAL PATCH TD SCH (09:34)
[2016-04-26] MEDS: RIVAROXABAN 20 MG TABLET PO SCH (09:34)
[2016-04-26] MEDS: LISINOPRIL 5 MG TABLET (FP) PO SCH (09:34)
[2016-04-26] MEDS ORDERED: METOPROLOL SUCCINATE 100 MG TAB.SR.24H (FP) PO SCH ×2 (10:00→22:00)
--- NOTE | 2016-04-26 11:48 | PN ---
Progress Note, Physician History of Present Illness: The patient is a 55 year old black male with history of hypertension, diabetes, CHF, atrial fibrillation, not compliant with medications because he believes his dosing is incorrect, who has not taken Lasix and methimazole in 3 weeks, who presents to the ED complaining of 3 weeks of chest tightness, palpitations, shortness of breath, and bilateral lower extremity edema. He is noted to be tachycardic to approximately 180 on ED arrival. The patient states he was in seen at an outside ED in December 2015 (? [place]) for rapid atrial fibrillation. "John put the pads on me and shocked me twice"; he was then treated with Diltiazem and admitted to the hospital. He states believes his medication on his discharge were dosed incorrectly, and he has been taking "bits " of them. More recently, he has discontinued his Methimazole secondary to chills and his Lasix secondary to leg swelling. The patient denies any fever or chills. He denies nausea, vomiting, or diarrhea. - Current Medication List Current Medications: Active Medications Furosemide (Lasix Injection -) 40 mg IVPUSH BID@0600,1400 [facility] Last Admin: 04/26/16 05:47 Dose: 40 mg Lisinopril (Prinivil) 2.5 mg PO DAILY [facility] Last Admin: 04/26/16 09:34 Dose: 2.5 mg Methimazole (Tapazole -) 10 mg PO DAILY [facility] Last Admin: 04/26/16 09:33 Dose: 10 mg Metoclopramide HCl (Reglan Injection -) 10 mg IVPB Q6H PRN PRN Reason: NAUSEA AND/OR VOMITING Last Admin: 04/23/16 23:55 Dose: 10 mg Metoprolol Succinate (Toprol Xl -) 100 mg PO DAILY [facility] Last Admin: 04/26/16 09:33 Dose: 100 mg Metoprolol Tartrate (Lopressor Injection -) 5 mg IVPUSH Q4H PRN PRN Reason: HYPERTENSION Last Admin: 04/26/16 05:54 Dose: 5 mg Nicotine (Nicoderm Patch -) 14 mg TD DAILY [facility] Last Admin: 04/26/16 09:34 Dose: 14 mg Rivaroxaban (Xarelto -) 20 mg PO DAILY [facility] Last Admin: 04/26/16 09:34 Dose: 20 mg - Objective Vital Signs: Vital Signs Temperature 98.1 F 04/26/16 10:00 Pulse Rate 132 H 04/26/16 10:00 Respiratory Rate 18 04/26/16 10:00 Blood Pressure 112/81 04/26/16 10:00 O2 Sat by Pulse Oximetry (%) 99 04/25/16 21:00 Eyes: Yes: WNL, Conjunctiva Clear, EOM Intact HENT: Yes: WNL, Atraumatic, Normocephalic Neck: Yes: WNL, Supple, Trachea Midline Cardiovascular: Yes: WNL, Regular Rate and Rhythm Respiratory: Yes: WNL, Regular, CTA Bilaterally Gastrointestinal: Yes: WNL, Normal Bowel Sounds Genitourinary: Yes: WNL Musculoskeletal: Yes: WNL Extremities: Yes: WNL Edema: No Edema: LLE: 2+, RLE: 2+ Integumentary: Yes: WNL Neurological: Yes: WNL, Alert, Oriented ...Motor Strength: WNL Psychiatric: Yes: WNL Labs: CBC, BMP 04/26/16 05:35 04/26/16 05:35 INR, PTT INR 1.63 (0.82-1.09) H 04/23/16 09:30 Assessment/Plan - Problems (1) Atrial fibrillation and flutter Assessment/Plan: ECHO: severely reduced LVEF; mild LV Enlargement; severe pulmonary HTN; moderate AR. AF exacerbated by dilated cardiomyopathy, hyperthyroidism. Started PO metoprolol ER (AF; hyperthyroid); will increase to 100 mg BID. On rivaroxaban for anticoagulation; discontinue ASA. 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 Code(s): I48.91 - UNSPECIFIED ATRIAL FIBRILLATION I48.92 - UNSPECIFIED ATRIAL FLUTTER (2) Diabetes Assessment/Plan: HGBA1c 6.6. Family hx DM. The importance of diet change (nutrition consult would be of benefit), exercise , and portion control was discussed. ?Need for medication. Code(s): E11.9 - TYPE 2 DIABETES MELLITUS WITHOUT COMPLICATIONS (3) HTN (hypertension) Assessment/Plan: on metoprolol, lisinopril, furosemide. Code(s): I10 - ESSENTIAL (PRIMARY) HYPERTENSION (4) Hyperthyroidism Assessment/Plan: restarted methimazole. Started beta blockers (AF; hyperthyroid; HTN). Pt has no hx of asthma. 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 Code(s): E05.90 - THYROTOXICOSIS, UNSP WITHOUT THYROTOXIC CRISIS OR STORM (5) Non-compliance Code(s): Z91.19 - PATIENT'S NONCOMPLIANCE W OTH MEDICAL TREATMENT AND REGIMEN (6) [place] cardiac risk >20% in next 10 years Assessment/Plan: Lipid panel. Diabetic therapy. thyroid control. F/u records; Coronary artery evaluation (stress MIBI or coronary angiogram because of severely reduced LV now noted on ECHO) when stable, if not done by his own group of doctors.Pt says he never had a heart problem, and does not remember having any of these tests. Code(s): Z91.89 - OT PERSONAL RISK FACTORS, NOT ELSEWHERE CLASSIFIED (7) Acute on chronic systolic (congestive) heart failure Assessment/Plan: Severely reduced LVEF. Start metoprolol ER (Systolic CHF; AF with RVR); increased to 100 mg daily Started lisinopril 2.5 mg daily, and increase as tolerated Plan for starting spironolactone once lisinopril is optimized, and if BUN/Cr and electrolytes allow. On furosemide. F/u daily weights, Is and Os. Replete magnesium (pt's IV site hurts him; will give Mg Oxide PO). Code(s): I50.23 - ACUTE ON CHRONIC SYSTOLIC (CONGESTIVE) HEART FAILURE May need c. cath to r/o ischemic CMP when medically stable.
[2016-04-26] MEDS ORDERED: METOPROLOL SUCCINATE 50 MG TAB.SR.24H (FP) PO ONE (12:34)
--- NOTE | 2016-04-26 12:38 | PN ---
Physical Exam: SUBJECTIVE: Patient seen and examined OBJECTIVE: Vital Signs Period Temp Pulse Resp BP Sys/Schuster Pulse Ox Last 24 Hr 98.1 F-98.8 F 126-145 18-22 98-166/59-86 99 GENERAL: The patient is awake, alert, and fully oriented. HEAD: Normal with no signs of trauma. EYES: PERRL, extraocular movements intact, sclera anicteric, conjunctiva clear. No ptosis. LUNGS: Breath sounds equal, clear to auscultation bilaterally, no wheezes, no crackles, no accessory muscle use. HEART: Irregular, rapid, S1, S2 without murmur, rub or gallop. ABDOMEN: Soft, nontender, nondistended, normoactive bowel sounds, no guarding, no rebound EXTREMITIES: 4+ tense edema NEUROLOGICAL: Cranial nerves II through XII grossly intact. Normal speech, steady gait Laboratory Results - last 24 hr 04/25/16 04/25/16 04/26/16 08:15 08:15 05:35 WBC RBC Hgb Hct MCV MCHC RDW Plt Count MPV Neutrophils % Lymphocytes % Monocytes % Eosinophils % Basophils % Sodium 140 Potassium 4.1 Chloride 102 Carbon Dioxide 27 Anion Gap 11 BUN 19 H Creatinine 0.8 Random Glucose 128 H Calcium 8.2 L Magnesium 1.8 Triglycerides 46 Cancelled Cholesterol 91 Cancelled Total LDL Cholesterol 70 Cancelled HDL Cholesterol 24 L Cancelled 04/26/16 05:35 WBC 7.6 RBC 4.60 Hgb 13.3 Hct 40.5 MCV 87.9 MCHC 32.8 RDW 16.1 H Plt Count 178 MPV 9.2 Neutrophils % 55.5 Lymphocytes % 29.8 Monocytes % 11.9 H Eosinophils % 2.3 D Basophils % 0.5 Sodium Potassium Chloride Carbon Dioxide Anion Gap BUN Creatinine Random Glucose Calcium Magnesium Triglycerides Cholesterol Total LDL Cholesterol HDL Cholesterol Active Medications Generic Name Dose Route Start Last Admin Trade Name Freq PRN Reason Stop Dose Admin Enoxaparin Sodium 100 mg 04/26/16 12:30 Lovenox - SQ Q12H RAFA Furosemide 40 mg 04/24/16 06:00 04/26/16 05:47 Lasix Injection - IVPUSH 40 mg BID@0600,1400 RAFA Administration Lisinopril 2.5 mg 04/26/16 10:00 04/26/16 09:34 Prinivil PO 2.5 mg DAILY RAFA Administration Methimazole 10 mg 04/24/16 10:00 04/26/16 09:33 Tapazole - PO 10 mg DAILY RAFA Administration Metoclopramide HCl 10 mg 04/23/16 23:29 04/23/16 23:55 Reglan Injection - IVPB 10 mg Q6H PRN Administration NAUSEA AND/OR VOMITING Metoprolol Succinate 100 mg 04/26/16 22:00 Toprol Xl - PO BID RAFA Metoprolol Succinate 50 mg 04/26/16 12:34 Toprol Xl - PO 04/26/16 12:35 ONCE ONE Metoprolol Tartrate 5 mg 04/25/16 21:57 04/26/16 05:54 Lopressor Injection - IVPUSH 5 mg Q4H PRN Administration HYPERTENSION Nicotine 14 mg 04/23/16 16:45 04/26/16 09:34 Nicoderm Patch - TD 14 mg DAILY RAFA Administration Spironolactone 25 mg 04/26/16 12:00 Aldactone - PO DAILY [facility] Imaging 04/24 Echo: LV severely reduced, severe global hypokinesis; RV normal; severe BLAE; moderate to severe MR; severe TR; mild to moderate AI; moderate PI ASSESSMENT/PLAN: 55 year-old man with a recent PMH of HTN, heart failure, and NIDDM. Admitted with severe systolic heart failure. Acute systolic heart failure Afib with RVR --increase Toprol XL 100mg BID; continue lisinopril 2.5mg daily --continue Lasix IV 40mg BID; start spironolactone; down 5.2kg since 04/24; strict I&Os --Xarelto for anticoagulation --stress MIBI when more stable; may need cardiac cath to r/o ICM Hyperthyroidism --continue methimazole, Toprol XL NIDDM --HgbA1C 6.6 --Novolog sliding scale coverage F/E/N Fluids: PO intake adequate Electrolytes: replete as indicated Nutrition: low sodium diet DVT prophylaxis: on Xarelto Dispo: continues to require inpatient care. Full code. Visit type - Emergency Visit Emergency Visit: Yes ED Registration Date: 04/23/16 Care time: The patient presented to the Emergency Department on the above date and was hospitalized for further evaluation of their emergent condition. - New Patient This patient is new to me today: No - Critical Care Critical Care patient: No
[2016-04-26] MEDS: ENOXAPARIN NA (PORCINE) 100 MG/1 ML DISP.SYRIN SQ SCH (13:56)
[2016-04-26] MEDS: SPIRONOLACTONE 25 MG TABLET (FP) PO SCH (13:56)
[2016-04-27] MEDS: METOCLOPRAMIDE HCL INJECTION 10 MG/2 ML VIAL IVPB PRN (00:18)
[2016-04-27] MEDS: MAG HYDROX/AL HYDROX/SIMETH 30 ML UNIT-DOSE CUP PO PRN ×2 (01:02→05:31)
[2016-04-27] MEDS: ENOXAPARIN NA (PORCINE) 100 MG/1 ML DISP.SYRIN SQ SCH ×3 (01:03→22:45)
[2016-04-27] MEDS: FUROSEMIDE 40 MG/4 ML INJECTABLE VIAL IVPUSH SCH ×2 (05:32→13:51)
--- NOTE | 2016-04-27 07:53 | PN ---
Progress Note, Physician Chief Complaint: Pt sitting up at bedside, eating breakfast; no chest pain or dyspnea; denies palpitations; legs are less swollen (but still 2+ bilateraaly to mid shins). History of Present Illness: The patient is a 55 year old black male with history of hypertension, diabetes, CHF, atrial fibrillation, not compliant with medications because he believes his dosing is incorrect, who has not taken Lasix and methimazole in 3 weeks, who presents to the ED complaining of 3 weeks of chest tightness, palpitations, shortness of breath, and bilateral lower extremity edema. He is noted to be tachycardic to approximately 180 on ED arrival. The patient states he was in seen at an outside ED in December 2015 (?[place]) for rapid atrial fibrillation. "John put the pads on me and shocked me twice"; he was then treated with Diltiazem and admitted to the hospital. He states believes his medication on his discharge were dosed incorrectly, and he has been taking "bits " of them. More recently, he has discontinued his Methimazole secondary to chills and his Lasix secondary to leg swelling. The patient denies any fever or chills. He denies nausea, vomiting, or diarrhea. Pt says that, for months, he gets easily short of breath and has central chest tightness if he walks more than a block quickly; the discomfort takes a few minutes to resolve after he stops walking. Doctors are not affiliated with this hospital network. - Current Medication List Current Medications: Active Medications Al Hydroxide/Mg Hydroxide (Mylanta Oral Suspension -) 30 ml PO Q6H PRN PRN Reason: DYSPEPSIA Last Admin: 04/27/16 05:31 Dose: 30 ml Enoxaparin Sodium (Lovenox -) 100 mg SQ Q12H [facility] Last Admin: 04/27/16 01:03 Dose: 100 mg Furosemide (Lasix Injection -) 40 mg IVPUSH BID@0600,1400 [facility] Last Admin: 04/27/16 05:32 Dose: 40 mg Lisinopril (Prinivil) 2.5 mg PO DAILY [facility] Last Admin: 04/26/16 09:34 Dose: 2.5 mg Methimazole (Tapazole -) 10 mg PO DAILY [facility] Last Admin: 04/26/16 09:33 Dose: 10 mg Metoclopramide HCl (Reglan Injection -) 10 mg IVPB Q6H PRN PRN Reason: NAUSEA AND/OR VOMITING Last Admin: 04/27/16 00:18 Dose: 10 mg Metoprolol Succinate (Toprol Xl -) 100 mg PO BID [facility] Last Admin: 04/26/16 21:52 Dose: 100 mg Metoprolol Tartrate (Lopressor Injection -) 5 mg IVPUSH Q4H PRN PRN Reason: HYPERTENSION Last Admin: 04/26/16 17:52 Dose: 5 mg Nicotine (Nicoderm Patch -) 14 mg TD DAILY [facility] Last Admin: 04/26/16 09:34 Dose: 14 mg Spironolactone (Aldactone -) 25 mg PO DAILY [facility] Last Admin: 04/26/16 13:56 Dose: 25 mg - Objective Vital Signs: Vital Signs Temperature 98 F 04/27/16 05:32 Pulse Rate 110 H 04/27/16 05:32 Respiratory Rate 21 04/27/16 05:32 Blood Pressure 110/50 04/27/16 05:32 O2 Sat by Pulse Oximetry (%) 100 04/26/16 21:00 Constitutional: Yes: Calm Eyes: Yes: WNL HENT: Yes: WNL Neck: Yes: WNL Cardiovascular: Yes: Pulse Irregular Respiratory: Yes: Regular Gastrointestinal: Yes: Soft ...Rectal Exam: Yes: Deferred Genitourinary: No: Anuria Breast(s): Yes: WNL Musculoskeletal: Yes: Muscle Weakness Extremities: Yes: Cool Edema: Yes Edema: LLE: 2+, RLE: 2+ Peripheral Pulses WNL: Yes Integumentary: Yes: WNL Neurological: Yes: WNL Psychiatric: Yes: WNL Labs: CBC, BMP 04/26/16 05:35 04/26/16 05:35 INR, PTT INR 1.63 (0.82-1.09) H 04/23/16 09:30 - ....Imaging Other: Image Reviewed (telemetry: AF with RVR) Problem List - Problems (1) Atrial fibrillation and flutter Assessment/Plan: ECHO: severely reduced LVEF; mild LV Enlargement; severe pulmonary HTN; moderate AR. AF exacerbated by dilated cardiomyopathy, hyperthyroidism. Started PO metoprolol ER (AF; hyperthyroid); will increase to 150 mg bid On lisinopril: increase as tolerated. On Aldactone; f/u BUN/Cr and electrolytes. On furosemide: f/u daily Is and Os, body weight. Off NOAC; on Lovenox; for coronary artery study. Treating hyperthyroidism per PMD, [employer]. Code(s): I48.91 - UNSPECIFIED ATRIAL FIBRILLATION I48.92 - UNSPECIFIED ATRIAL FLUTTER (2) Diabetes Code(s): E11.9 - TYPE 2 DIABETES MELLITUS WITHOUT COMPLICATIONS (3) HTN (hypertension) Code(s): I10 - ESSENTIAL (PRIMARY) HYPERTENSION (4) Hyperthyroidism Code(s): E05.90 - THYROTOXICOSIS, UNSP WITHOUT THYROTOXIC CRISIS OR STORM (5) Non-compliance Code(s): Z91.19 - PATIENT'S NONCOMPLIANCE W OTH MEDICAL TREATMENT AND REGIMEN (6) [place] cardiac risk >20% in next 10 years Code(s): Z91.89 - OTH PERSONAL RISK FACTORS, NOT ELSEWHERE CLASSIFIED (7) Acute on chronic systolic (congestive) heart failure Code(s): I50.23 - ACUTE ON CHRONIC SYSTOLIC (CONGESTIVE) HEART FAILURE
[2016-04-27] MEDS ORDERED: MAGNESIUM OXIDE 400 MG TABLET (FP) PO ONE (09:00)
[2016-04-27] MEDS: SPIRONOLACTONE 25 MG TABLET (FP) PO SCH (09:34)
[2016-04-27] MEDS: NICOTINE 14 MG/24 HOURS TOPICAL PATCH TD SCH (09:35)
[2016-04-27] MEDS: METHIMAZOLE 10 MG TABLET (FP) PO SCH (09:36)
[2016-04-27] MEDS: LISINOPRIL 5 MG TABLET (FP) PO SCH (09:36)
[2016-04-27] MEDS: METOPROLOL SUCCINATE 100 MG TAB.SR.24H (FP) PO SCH ×2 (09:36→22:45)
--- NOTE | 2016-04-27 10:41 | PN ---
Physical Exam: SUBJECTIVE: Patient seen and examined OBJECTIVE: Vital Signs Period Temp Pulse Resp BP Sys/Schuster Pulse Ox Last 24 Hr 97.2 F-98.4 F 99-150 18-21 102-115/50-88 100 GENERAL: The patient is awake, alert, and fully oriented. HEAD: Normal with no signs of trauma. EYES: PERRL, extraocular movements intact, sclera anicteric, conjunctiva clear. No ptosis. LUNGS: Breath sounds equal, clear to auscultation bilaterally, no wheezes, no crackles, no accessory muscle use. HEART: Irregular, rapid, S1, S2 without murmur, rub or gallop. ABDOMEN: Soft, nontender, nondistended, normoactive bowel sounds, no guarding, no rebound EXTREMITIES: 4+ pitting edema NEUROLOGICAL: Cranial nerves II through XII grossly intact. Normal speech, steady gait Active Medications Generic Name Dose Route Start Last Admin Trade Name Freq PRN Reason Stop Dose Admin Al Hydroxide/Mg Hydroxide 30 ml 04/26/16 17:29 04/27/16 05:31 Mylanta Oral Suspension - PO 30 ml Q6H PRN Administration DYSPEPSIA Enoxaparin Sodium 100 mg 04/26/16 12:30 04/27/16 01:03 Lovenox - SQ 100 mg Q12H RAFA Administration Furosemide 40 mg 04/24/16 06:00 04/27/16 05:32 Lasix Injection - IVPUSH 40 mg BID@0600,1400 RAFA Administration Lisinopril 2.5 mg 04/26/16 10:00 04/27/16 09:36 Prinivil PO 2.5 mg DAILY RAFA Administration Methimazole 10 mg 04/24/16 10:00 04/27/16 09:36 Tapazole - PO 10 mg DAILY RAFA Administration Metoclopramide HCl 10 mg 04/23/16 23:29 04/27/16 00:18 Reglan Injection - IVPB 10 mg Q6H PRN Administration NAUSEA AND/OR VOMITING Metoprolol Succinate 150 mg 04/27/16 10:00 04/27/16 09:36 Toprol Xl - PO 150 mg BID RAFA Administration Metoprolol Tartrate 5 mg 04/25/16 21:57 04/26/16 17:52 Lopressor Injection - IVPUSH 5 mg Q4H PRN Administration HYPERTENSION Nicotine 14 mg 04/23/16 16:45 04/27/16 09:35 Nicoderm Patch - TD 14 mg DAILY RAFA Administration Spironolactone 25 mg 04/26/16 12:00 04/27/16 09:34 Aldactone - PO 25 mg DAILY RAFA Administration Imaging 04/24 Echo: LV severely reduced, severe global hypokinesis; RV normal; severe BLAE; moderate to severe MR; severe TR; mild to moderate AI; moderate PI ASSESSMENT/PLAN: 55 year-old man with a recent PMH of HTN, heart failure, and NIDDM. Admitted with severe systolic heart failure. Acute systolic heart failure --continue Toprol XL, lisinopril --leg edema slightly improved; continue Lasix, spironolactone; down 7.3kg since 04/24 --stress MIBI when more stable; may need cardiac cath to r/o ICM Afib with RVR --rate has improved 140s-->120s; increase Toprol XL 150mg BID --full dose lovenox for anti-coagulation Hyperthyroidism --continue methimazole, Toprol XL NIDDM --HgbA1C 6.6 --Novolog sliding scale coverage F/E/N Fluids: PO intake adequate Electrolytes: replete as indicated Nutrition: low sodium diet DVT prophylaxis: full dose lovenox Dispo: continues to require inpatient care. Full code. Visit type - Emergency Visit Emergency Visit: Yes ED Registration Date: 04/23/16 Care time: The patient presented to the Emergency Department on the above date and was hospitalized for further evaluation of their emergent condition. - New Patient This patient is new to me today: No - Critical Care Critical Care patient: No
[2016-04-28] MEDS: ENOXAPARIN NA (PORCINE) 100 MG/1 ML DISP.SYRIN SQ SCH (00:59)
[2016-04-28 06:00] VITALS: BP 115/70; PULSE 124; TEMP 97.2
[2016-04-28] MEDS: FUROSEMIDE 40 MG/4 ML INJECTABLE VIAL IVPUSH SCH (06:21)
[2016-04-28 06:45] LABS: ALBUMIN 2.8 g/dl (3.4-5.0); ALK PHOS 127 U/L (45-117); ANION GAP 11 (8-16); BILIRUBIN,TOTAL 2.4 mg/dL (0.2-1.0); CALCIUM 8.3 mg/dL (8.5-10.1); CO2 29 mmol/L (21-32); CREATININE 0.9 mg/dL (0.7-1.3); GLUCOSE,RANDOM 137 mg/dL (74-106); SGOT/AST 42 U/L (15-37); SGPT/ALT 39 U/L (12-78); TOT PROT 5.8 g/dl (6.4-8.2)
--- NOTE | 2016-04-28 08:03 | PN ---
Progress Note, Physician History of Present Illness: The patient is a 55 year old black male with history of hypertension, diabetes, CHF, atrial fibrillation, not compliant with medications because he believes his dosing is incorrect, who has not taken Lasix and methimazole in 3 weeks, who presents to the ED complaining of 3 weeks of chest tightness, palpitations, shortness of breath, and bilateral lower extremity edema. He is noted to be tachycardic to approximately 180 on ED arrival. The patient states he was in seen at an outside ED in December 2015 (? [place]) for rapid atrial fibrillation. "John put the pads on me and shocked me twice"; he was then treated with Diltiazem and admitted to the hospital. He states believes his medication on his discharge were dosed incorrectly, and he has been taking "bits " of them. More recently, he has discontinued his Methimazole secondary to chills and his Lasix secondary to leg swelling. The patient denies any fever or chills. He denies nausea, vomiting, or diarrhea. - Current Medication List Current Medications: Active Medications Al Hydroxide/Mg Hydroxide (Mylanta Oral Suspension -) 30 ml PO Q6H PRN PRN Reason: DYSPEPSIA Last Admin: 04/27/16 05:31 Dose: 30 ml Furosemide (Lasix Injection -) 40 mg IVPUSH BID@0600,1400 [facility] Last Admin: 04/28/16 06:21 Dose: 40 mg Lisinopril (Prinivil) 2.5 mg PO DAILY [facility] Last Admin: 04/27/16 09:36 Dose: 2.5 mg Methimazole (Tapazole -) 10 mg PO DAILY [facility] Last Admin: 04/27/16 09:36 Dose: 10 mg Metoclopramide HCl (Reglan Injection -) 10 mg IVPB Q6H PRN PRN Reason: NAUSEA AND/OR VOMITING Last Admin: 04/27/16 00:18 Dose: 10 mg Metoprolol Succinate (Toprol Xl -) 150 mg PO BID [facility] Last Admin: 04/27/16 22:45 Dose: 150 mg Metoprolol Tartrate (Lopressor Injection -) 5 mg IVPUSH Q4H PRN PRN Reason: HYPERTENSION Last Admin: 04/26/16 17:52 Dose: 5 mg Nicotine (Nicoderm Patch -) 14 mg TD DAILY [facility] Last Admin: 04/27/16 09:35 Dose: 14 mg Spironolactone (Aldactone -) 25 mg PO DAILY [facility] Last Admin: 04/27/16 09:34 Dose: 25 mg - Objective Vital Signs: Vital Signs Temperature 97.2 F L 04/28/16 05:59 Pulse Rate 124 H 04/28/16 05:59 Respiratory Rate 20 04/28/16 05:59 Blood Pressure 115/70 04/28/16 05:59 O2 Sat by Pulse Oximetry (%) 97 04/27/16 21:00 Eyes: Yes: WNL, Conjunctiva Clear, EOM Intact HENT: Yes: WNL, Atraumatic, Normocephalic Neck: Yes: WNL, Supple, Trachea Midline Cardiovascular: Yes: Pulse Irregular, S1, S2 Respiratory: Yes: WNL, Regular, CTA Bilaterally Gastrointestinal: Yes: WNL, Normal Bowel Sounds Genitourinary: Yes: WNL Musculoskeletal: Yes: WNL Extremities: Yes: WNL Edema: No Edema: LLE: 1+, RLE: 1+ Integumentary: Yes: WNL Neurological: Yes: WNL, Alert, Oriented ...Motor Strength: WNL Psychiatric: Yes: WNL Labs: CBC, BMP 04/26/16 05:35 04/28/16 05:45 INR, PTT INR 1.63 (0.82-1.09) H 04/23/16 09:30 Assessment/Plan - Problems (1) Atrial fibrillation and flutter Assessment/Plan: ECHO: severely reduced LVEF; mild LV Enlargement; severe pulmonary HTN; moderate AR. AF exacerbated by dilated cardiomyopathy, hyperthyroidism. Started PO metoprolol ER (AF; hyperthyroid); will increase to 100 mg BID. On rivaroxaban for anticoagulation; discontinue ASA. 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 Code(s): I48.91 - UNSPECIFIED ATRIAL FIBRILLATION I48.92 - UNSPECIFIED ATRIAL FLUTTER (2) Diabetes Assessment/Plan: HGBA1c 6.6. Family hx DM. The importance of diet change (nutrition consult would be of benefit), exercise , and portion control was discussed. ?Need for medication. Code(s): E11.9 - TYPE 2 DIABETES MELLITUS WITHOUT COMPLICATIONS (3) HTN (hypertension) Assessment/Plan: on metoprolol, lisinopril, furosemide. Code(s): I10 - ESSENTIAL (PRIMARY) HYPERTENSION (4) Hyperthyroidism Assessment/Plan: restarted methimazole. Started beta blockers (AF; hyperthyroid; HTN). Pt has no hx of asthma. 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 Code(s): E05.90 - THYROTOXICOSIS, UNSP WITHOUT THYROTOXIC CRISIS OR STORM (5) Non-compliance Code(s): Z91.19 - PATIENT'S NONCOMPLIANCE W OTH MEDICAL TREATMENT AND REGIMEN (6) [place] cardiac risk >20% in next 10 years Assessment/Plan: Lipid panel. Diabetic therapy. thyroid control. F/u records; Coronary artery evaluation (stress MIBI or coronary angiogram because of severely reduced LV now noted on ECHO) when stable, if not done by his own group of doctors.Pt says he never had a heart problem, and does not remember having any of these tests. Code(s): Z91.89 - OT PERSONAL RISK FACTORS, NOT ELSEWHERE CLASSIFIED (7) Acute on chronic systolic (congestive) heart failure Assessment/Plan: Severely reduced LVEF. Start metoprolol ER (Systolic CHF; AF with RVR); increased to 100 mg daily Started lisinopril 2.5 mg daily, and increase as tolerated Plan for starting spironolactone once lisinopril is optimized, and if BUN/Cr and electrolytes allow. On furosemide. F/u daily weights, Is and Os. Replete magnesium (pt's IV site hurts him; will give Mg Oxide PO). Code(s): I50.23 - ACUTE ON CHRONIC SYSTOLIC (CONGESTIVE) HEART FAILURE May need c. cath to r/o ischemic CMP today.
== END 2016-04-28 08:24 | disposition short-term general hospital (02) | DRG 194 ==
LOC: JER 09:10 → JERBED 12:36 → J4W 15:29
PROVIDERS: ADMIT Internal Medicine; ATTEND Nurse Practitioner Acute Care
DX: I11.0 Hypertensive heart disease with heart failure (principal); I48.91 Unspecified atrial fibrillation; I50.23 Acute on chronic systolic (congestive) heart failure; E11.9 Type 2 diabetes mellitus without complications; I48.92 Unspecified atrial flutter; F17.210 Nicotine dependence, cigarettes, uncomplicated; I47.1 Supraventricular tachycardia; E05.90 Thyrotoxicosis, unspecified without thyrotoxic crisis or storm; I42.8 Other cardiomyopathies; Z91.19 Patient's noncompliance with other medical treatment and regimen
CPT/HCPCS: 36415; 71010-TC; 80048; 80053; 80061; 80162; 82550; 83036; 83721; 83735; 84100; 84436; 84439; 84443; 84481; 84484; 85025; 85610; 93005; 93010; 93306-TC; 99285-25